=== PATIENT | male | born 1965 | race Two or more races ===

== ENCOUNTER 2020-10-11 15:35 | Emergency (ER) | payer BC, MEDICAID ==
[2020-10-11] MEDS ORDERED: Aspirin 81 MG Tab.Chew PO ONE (15:53)
--- NOTE | 2020-10-11 16:31 | EDM.PDOC ---
ED HPI GENERAL MEDICAL PROBLEM - General Chief Complaint: Chest Pain Stated Complaint: CHEST PAIN Time Seen by Provider: 10/11/20 15:40 Source of Information: Reports: Patient History Limitations: Reports: No Limitations - History of Present Illness INITIAL COMMENTS - FREE TEXT/NARRATIVE: Patient presented to the ED because of chest pain over the sternal area at 1500. The pain is sharp and pressure, lasted for 10 minutes. He c/o dyspnea and dizziness associated with the chest pain. There is no cough/cold, fever,chills. There is no N/V/D. He was diagnosed with Covid on 08/21/20. Chest Pain Score (Numeric/FACES): 5 - Related Data Allergies Allergy/AdvReac Type Severity Reaction Status Date / Time No Known Allergies Allergy Verified 10/11/20 15:52 Home Meds: Home Meds Pantoprazole [ProTONIX] 40 mg PO DAILY 10/11/20 [History] Past Medical History HEENT History: Reports: Impaired Vision Gastrointestinal History: Reports: GERD Psychiatric History: Reports: Anxiety - Past Surgical History GI Surgical History: Reports: Appendectomy, Cholecystectomy, Colonoscopy, EGD Social & Family History - Tobacco Use Tobacco Use Status *Q: Former Tobacco User Used Tobacco, but Quit: Yes Month/Year Tobacco Last Used: 1995 - Caffeine Use Caffeine Use: Reports: Coffee, Soda, Tea - Recreational Drug Use Recreational Drug Use: No ED ROS GENERAL - Review of Systems Review Of Systems: See Below Constitutional: Reports: No Symptoms HEENT: Reports: No Symptoms Respiratory: Reports: Shortness of Breath Cardiovascular: Reports: Chest Pain Endocrine: Reports: No Symptoms GI/Abdominal: Reports: No Symptoms : Reports: No Symptoms Musculoskeletal: Reports: No Symptoms Skin: Reports: No Symptoms Neurological: Reports: No Symptoms Psychiatric: Reports: No Symptoms ED EXAM, GENERAL - Physical Exam Exam: See Below Exam Limited By: No Limitations General Appearance: Alert, No Apparent Distress Eye Exam: Bilateral Eye: PERRL Ears: Normal External Exam, Normal Canal Nose: Normal Inspection, Normal Mucosa Throat/Mouth: Normal Inspection, Normal Lips, Normal Teeth Head: Atraumatic, Normocephalic Neck: Normal Inspection, Supple, Non-Tender, Full Range of Motion Respiratory/Chest: No Respiratory Distress, Lungs Clear, Normal Breath Sounds Cardiovascular: Normal Peripheral Pulses, Regular Rate, Rhythm, No Edema, No Gallop, No JVD, No Murmur GI/Abdominal: Normal Bowel Sounds, Soft, Non-Tender Back Exam: Normal Inspection, Full Range of Motion Course - Vital Signs Text/Narrative:: Labs/EKG/CXR was discussed with the patient EKG-NSR Trop-neg [id number] mg po x1 Last Recorded V/S: Last Vital Signs Temp 36.7 C 10/11/20 15:35 Pulse 98 10/11/20 15:35 Resp 19 10/11/20 15:35 BP 147/74 H 10/11/20 15:35 Pulse Ox 99 10/11/20 15:35 - Orders/Labs/Meds Orders: Active Orders 24 hr Category Date Time Status EKG Documentation Completion [RC] ASDIRECTED Care 10/11/20 15:54 Active Chest 1V Frontal [CR] Stat Exams 10/11/20 15:53 Taken EKG 12 Lead [EK] Routine Ther 10/11/20 15:53 Ordered Labs: Laboratory Tests 10/11/20 10/11/20 10/11/20 Range/Units 15:30 15:30 15:30 WBC (3.2-10.1) x10-3/uL RBC (3.90-5.90) x10(6)uL Hgb (12.9-17.7) g/dL Hct (38.3-50.1) % MCV (80.8-98.7) fL MCH (27.0-33.3) pg MCHC (28.7-35.3) g/dL RDW (12.4-15.0) % Plt Count (117-477) x10(3)uL MPV (6.7-11.0) fL Neut % (Auto) (40.3-71.8) % Lymph % (Auto) (15.8-45.3) % [place] % (Auto) (5.5-15.2) % Eos % (Auto) (0.1-6.8) % Baso % (Auto) (0.3-3.8) % Neut # (Auto) (1.7-6.9) x10-3/uL Lymph # (Auto) (0.5-4.5) x10-3/uL [place] # (Auto) (0.0-1.2) x10-3/uL Eos # (Auto) (0.0-0.6) x10-3/uL Baso # (Auto) (0.0-0.3) x10-3/uL D-Dimer, Quantitative < 0.19 (0.0-0.59) mg/LFEU Sodium 139 (135-145) mmol/L Potassium 3.8 (3.5-5.3) mmol/L Chloride 102 (100-110) mmol/L Carbon Dioxide 28 (21-32) mmol/L BUN 13 (7-18) mg/dL Creatinine 1.0 (0.70-1.30) mg/dL Est Cr Clr Drug Dosing 80.75 mL/min Estimated GFR (MDRD) > 60 (>60) BUN/Creatinine Ratio 13.0 (9-20) Glucose 121 H (80-116) mg/dL Calcium 8.3 L (8.6-10.2) mg/dL Magnesium (1.8-2.5) mg/dL Total Bilirubin 0.3 (0.1-1.3) mg/dL AST 22 (5-25) IU/L ALT 42 H (12-36) U/L Alkaline Phosphatase 76 (56-112) IU/L Troponin I 6.1 (4.0-60.3) pg/mL Total Protein 7.4 (6.0-8.0) g/dL Albumin 3.7 (3.5-5.2) g/dL Globulin 3.7 g/dL Albumin/Globulin Ratio 1.0 10/11/20 10/11/20 Range/Units 16:30 16:30 WBC 5.6 (3.2-10.1) x10-3/uL RBC 4.81 (3.90-5.90) x10(6)uL Hgb 14.2 (12.9-17.7) g/dL Hct 43.1 (38.3-50.1) % MCV 89.6 (80.8-98.7) fL MCH 29.6 (27.0-33.3) pg MCHC 33.0 (28.7-35.3) g/dL RDW 14.0 (12.4-15.0) % Plt Count 313 (117-477) x10(3)uL MPV 7.0 (6.7-11.0) fL Neut % (Auto) 53.5 (40.3-71.8) % Lymph % (Auto) 33.9 (15.8-45.3) % [place] % (Auto) 10.1 (5.5-15.2) % Eos % (Auto) 1.5 (0.1-6.8) % Baso % (Auto) 1.0 (0.3-3.8) % Neut # (Auto) 3.0 (1.7-6.9) x10-3/uL Lymph # (Auto) 1.9 (0.5-4.5) x10-3/uL [place] # (Auto) 0.6 (0.0-1.2) x10-3/uL Eos # (Auto) 0.1 (0.0-0.6) x10-3/uL Baso # (Auto) 0.1 (0.0-0.3) x10-3/uL D-Dimer, Quantitative (0.0-0.59) mg/LFEU Sodium (135-145) mmol/L Potassium (3.5-5.3) mmol/L Chloride (100-110) mmol/L Carbon Dioxide (21-32) mmol/L BUN (7-18) mg/dL Creatinine (0.70-1.30) mg/dL Est Cr Clr Drug Dosing mL/min Estimated GFR (MDRD) (>60) BUN/Creatinine Ratio (9-20) Glucose (80-116) mg/dL Calcium (8.6-10.2) mg/dL Magnesium 1.9 (1.8-2.5) mg/dL Total Bilirubin (0.1-1.3) mg/dL AST (5-25) IU/L ALT (12-36) U/L Alkaline Phosphatase (56-112) IU/L Troponin I (4.0-60.3) pg/mL Total Protein (6.0-8.0) g/dL Albumin (3.5-5.2) g/dL Globulin g/dL Albumin/Globulin Ratio Meds: Medications Discontinued Medications Generic Name Dose Route Start Last Admin Trade Name Freq PRN Reason Stop Dose Admin Aspirin 324 mg 10/11/20 15:53 10/11/20 15:45 Aspirin PO 10/11/20 15:54 324 mg ONETIME ONE Administration Departure - Departure Time of Disposition: 17:00 Disposition: Home, Self-Care 01 Condition: Good Clinical Impression: Chest pain Instructions: Nonspecific Chest Pain, Adult Referrals: PCP,Unknown [Primary Care Provider] - Forms: ED Department Discharge Additional Instructions: Please read discharge instructions on non-specific chest pain Follow up with your doctor this week so you can have stress test if you have not done it in the past Sepsis Event Note (ED) - Evaluation Sepsis Screening Result: No Definite Risk - Focused Exam Vital Signs: Vital Signs Temp Pulse Resp BP Pulse Ox 10/11/20 15:35 36.7 C 98 19 147/74 H 99 - My Orders Last 24 Hours: My Active Orders 10/11/20 15:53 Chest 1V Frontal [CR] Stat EKG 12 Lead [EK] Routine 10/11/20 15:54 EKG Documentation Completion [RC] ASDIRECTED - Assessment/Plan Last 24 Hours: My Active Orders 10/11/20 15:53 Chest 1V Frontal [CR] Stat EKG 12 Lead [EK] Routine 10/11/20 15:54 EKG Documentation Completion [RC] ASDIRECTED
--- NOTE | 2020-10-11 18:29 | CR ---
INDICATION: Cough, dyspnea. CHEST, ONE VIEW: An AP upright portable view of the chest 10/11/20 was compared with 08/11/08, again revealing the heart to be normal in size and shape. The aorta is somewhat more tortuous than on the previous study with suggestion of some minimal calcification in the arch. Overlying EKG leads are noted. A definite active infiltrate or effusion was not identified with pulmonary markings similar to the previous examination. IMPRESSION: 1. No definite active infiltrate or effusion - no acute process. 2. ASD aorta. MTDD
== END 2020-10-11 17:25 | disposition home or self-care (01) ==
LOC: FB.ED 15:35
DX: R07.2 Precordial pain (principal); R42 Dizziness and giddiness; R06.00 Dyspnea, unspecified; K21.9 Gastro-esophageal reflux disease without esophagitis; Z90.49 Acquired absence of other specified parts of digestive tract; Z87.891 Personal history of nicotine dependence
CPT/HCPCS: 36415; 71045; 80053; 83735; 84484; 85025; 85379; 93005; 99283; 99285-25; A9270-GY